=== PATIENT | male | born 1990 | race Asian ===

== ENCOUNTER → 2016-08-07 | Outpatient (CLI) | payer BC, OTHER ==
[~2016-08-07] MED LIST: ADDERALL 10 MG10 MG PO; COLACE100 MG PO; HYDROCODONE-APA1 TA1 PO; IBUPROFEN 200200 M1 PO; IBUPROFEN 800800 M1 PO; KEFLEX500 M1 PO; VANCOMYCIN1.25 GM/21 IV
== END ==
LOC: CAT 10:39
DX: J32.2 Chronic ethmoidal sinusitis (principal); J32.0 Chronic maxillary sinusitis